=== PATIENT | female | born 1975 | race Caucasian/White ===

== ENCOUNTER 2017-01-28 13:45 | Emergency (ER) | payer MEDICAID, OTHER, SELFPAY ==
[~2017-01-28] VITALS: Ht 167.6 cm; Wt 68.1 kg
[2017-01-28 13:46] VITALS: BP 161/100
[2017-01-28] MEDS ORDERED: LIDOCAINE 2% MDV 20 ML VIAL As Ordered ONE (15:26)
[2017-01-28] MEDS ORDERED: LIDOCAINE 2% MDV 20 ML VIAL SC ONE (15:30)
--- NOTE | 2017-01-28 18:48 | REP ---
MRI study of the right hand without contrast: History: Laceration with a knife, 4th and 5th flexor tendon injury. Technique: Axial, coronal and sagittal imaging planes were utilized. T1 and T2-weighted scans were obtained with and without fat saturation. MRI findings: There is no evidence of fracture. There are complete transection of the flexor tendons at the volar aspect mid diaphysis level proximal phalanx of the 4th and 5th digits. There is surrounding edema and soft tissue swelling. There is one focus of presumed gas in the soft tissues. Impression: Complete transection with mild retraction of the flexor tendons at the volar aspect of the proximal phalanx of the 4th and 5th digits. Signed by Fran Esteban MD 01/28/2017 07:19 P
--- NOTE | 2017-01-29 09:58 | ED PDOC ---
Post-Departure Follow-Up certified letter sent to patient regarding radiology report Marah Crain MD Jan 29, 2017 09:58
== END 2017-01-28 18:46 | disposition left against medical advice (07) ==
LOC: M ED 13:45
DX: S61.214A Laceration without foreign body of right ring finger without damage to nail, initial encounter (principal); S61.216A Laceration without foreign body of right little finger without damage to nail, initial encounter; S66.124A Laceration of flexor muscle, fascia and tendon of right ring finger at wrist and hand level, initial encounter; S66.126A Laceration of flexor muscle, fascia and tendon of right little finger at wrist and hand level, initial encounter; W26.0XXA Contact with knife, initial encounter; Y92.019 Unspecified place in single-family (private) house as the place of occurrence of the external cause; Y93.89 Activity, other specified; Y99.8 Other external cause status; F17.210 Nicotine dependence, cigarettes, uncomplicated

== ENCOUNTER 2020-10-31 09:38 | Emergency (ER) | payer MEDICAID, SELFPAY ==
[~2020-10-31] VITALS: Ht 167.6 cm; Wt 77.9 kg
[2020-10-31 09:39] VITALS: BP 158/91
[2020-10-31] MEDS ORDERED: IBUP200C25 PO (10:08)
[2020-10-31] MEDS ORDERED: NORCO, ANEXSIA 5/325MG TABLET (HYDROcodone/ACETAMINOPHEN) PO ONE (11:10)
[2020-10-31] MEDS ORDERED: AUGMENTIN 875 MG TAB PO ONE (11:10)
[2020-10-31] MEDS ORDERED: AUGM875T28 PO (11:13)
== END 2020-10-31 11:51 | disposition left against medical advice (07) ==
LOC: M ED 09:38
DX: K04.7 Periapical abscess without sinus (principal); K02.9 Dental caries, unspecified; Z53.21 Procedure and treatment not carried out due to patient leaving prior to being seen by health care provider; F17.200 Nicotine dependence, unspecified, uncomplicated

== ENCOUNTER 2024-09-04 06:21 | Emergency (ER) | payer SELFPAY ==
[~2024-09-04] VITALS: Ht 167.6 cm; Wt 77.2 kg
[~2024-09-04 06:21] MED LIST: AUGM875T28 PO; IBUP200C25 PO
[2024-09-04 06:25] VITALS: BP 137/76; TEMP 97.8; O2SAT 100
== END 2024-09-04 07:54 | disposition left against medical advice (07) ==
LOC: M ED 06:21
DX: Z53.21 Procedure and treatment not carried out due to patient leaving prior to being seen by health care provider (principal)